=== PATIENT | female | born 1950 | race African-American/Black ===

== ENCOUNTER 2017-03-25 09:13 | Emergency (ER) | payer MEDICAID, OTHER ==
[~2017-03-25] VITALS: Ht 160 cm; Wt 108.9 kg
[~2017-03-25 09:13] MED LIST: BENAZEPRIL HCL40 MG ORAL; METOPROLOL TART50 MG ORAL; NORCO 10/3251 EA ORAL; NORCO 5-325 TA1 EACH ORAL; PEPCID20 M1 *; ROBAXIN-750750 MG PO; SIMVASTATIN10 MG ORAL
[2017-03-25 09:25] VITALS: BP 148/86
--- NOTE | 2017-03-25 09:44 | Emergency Room Report ---
History of Present Illness General Chief Complaint: Multiple Trauma/Fall Source: Patient Present Illness HPI 66-year-old female, history of hypertension, osteoarthritis, in a wheelchair mostly but walks in a home, presenting with left hip pain. Patient states that she was in the shower yesterday, slipped and fell, landed on her buttocks. Did not hit her head. There was no LOC. Allergies: Coded Allergies: CODEINE (Verified Allergy, Mild, Itching, 08/08/13) IBUPROFEN (Verified Allergy, Mild, 08/08/13) ULCERS BLEED Patient History Past Medical History: see triage record Past Surgical History: none Pertinent Family History: none Last Menstrual Period: na Reviewed Nursing Documentation: PMH: Agreed, PSxH: Agreed Nursing Documentation-PMH Past Medical History: No History, Except For Hx Hypertension: Yes - HIGH CHOLESTEROL Hx Pacemaker: No Hx Asthma: No Hx Diabetes: Yes Hx Cancer: No Hx Gastrointestinal Problems: Yes - GERD, ULCERS Hx Dialysis: No Hx Neurological Problems: No Hx Cerebrovascular Accident: No Hx Seizures: No Review of Systems All Other Systems: negative except mentioned in HPI Physical Exam Vital Signs Date Time Temp Pulse Resp B/P (MAP) Pulse Ox O2 Delivery O2 Flow Rate FiO2 03/25/17 09:23 98.8 77 18 148/86 98 Room Air Sp02 EP Interpretation: reviewed, normal General Appearance: alert, GCS 15, non-toxic, mild distress Head: normocephalic, atraumatic Eyes: bilateral eye normal inspection, bilateral eye PERRL, bilateral eye EOMI ENT: normal ENT inspection, normal pharynx, normal voice, moist mucus membranes Neck: normal inspection, full range of motion, supple Respiratory: normal inspection, lungs clear, normal breath sounds, no respiratory distress, no retraction, no wheezing, speaking full sentences, chest symmetrical Cardiovascular #1: normal inspection, regular rate, rhythm, normal capillary refill Cardiovascular #2: 2+ radial (R), 2+ radial (L) Gastrointestinal: normal inspection, non tender, soft, non-distended, no guarding Musculoskeletal: other - L hip tenderness, limited ROM L hip 2/2 to pain, no leg shortening or rotation, able to bend b/l knees Neurologic: normal inspection, alert, oriented x3, responsive, transformation consultant III-XII nml as tested, motor strength/tone normal, sensory intact, normal gait, speech normal Psychiatric: normal inspection, judgement/insight normal, memory normal Skin: normal inspection, normal color, no rash, warm/dry, well hydrated, normal turgor Medical Decision Making Diagnostic Impression: Primary Impression: fall, mechanical ER Course 66-year-old female, mechanical fall, left hip pain DDX: Fracture versus contusion Plan: Pain control, x-rays ER course: Patient has remained stable during ED stay. Feels better with medication X-rays do not reveal a fracture, however complete obliteration of the hip joint space, will perform CT pt has been pain free after initial meds given to her XR not sufficient to r/o fx, wanted to get CT however patient refusing and states that she has somewhere to go informed her of possible occult fracture and possible disability, however still refusing Patient is clinically sober, is free from from distracting injury, and has intact judgement and capacity to decide to leave against medical advice. Patient came in for left hip pain. I'm concerned for occult hip fracture. Patient verbalized understanding of my concern and my need to do CAT scan, but patient states "I feel better and I want to leave ". I explained to patient the risks of leaving AMA and patient informed that if they leave, they could get worse, ould become become critically ill, possibly become disabled or . Patient verbalized back to me understanding of these risks but still wants to leave. Disposition: Patient left AMA Prescriptions given are norco Strict return precautions discussed with patient such as fever, chills, worsening/severe pain, chest pain, SOB, nausea, vomiting, which may indicate severe illness. Patient verbalizes understanding and agrees with plan. Please note that this Emergency Department Report was dictated using [employer] scalder technology software, occasionally this can lead to erroneous entry secondary to interpretation by the dictation equipment Rhythm Strip EP Interpretation: Yes Rate: 81 Rhythm: NSR, no PVCs, no ectopy Xray: Left hip Complete Indication: Pain EP Interpretation: Yes Findings: There is complete obliteration of the hip joint space. There is considerable subchondral sclerosis of both the acetabulum and femoral head. There is subchondral cyst formation within the femoral head. There is degenerative remodeling of the acetabulum and the femoral head. No definite acute hip or pelvic fractures. No dislocations. There is a right hip prosthesis noted. There are degenerative changes of the lumbosacral junction. Impression: No definite acute bony trauma. Note, however, that in elderly osteoporotic patients, nondisplaced fractures can easily be occult. Consider cross-sectional imaging if there is high clinical suspicion This is a read by radiologist Electronically signed by Celso Botello MD Xray: Pelvis One view Indication: Pain EP Interpretation: Yes Findings: There is complete obliteration of the hip joint space. There is considerable subchondral sclerosis of both the acetabulum and femoral head. There is subchondral cyst formation within the femoral head. There is degenerative remodeling of the acetabulum and the femoral head. No definite acute hip or pelvic fractures. No dislocations. There is a right hip prosthesis noted. There are degenerative changes of the lumbosacral junction. Impression: No definite acute bony trauma. Note, however, that in elderly osteoporotic patients, nondisplaced fractures can easily be occult. Consider cross-sectional imaging if there is high clinical suspicion Electronically signed by Celso Botello MD Xray: Left femur 2 view Indication: Pain EP Interpretation: Yes Interpretation: Obliteration of the hip joint Impression: No acute fracture, however will perform CT Electronically signed by Celso Botello MD Last Vital Signs Date Time Temp Pulse Resp B/P (MAP) Pulse Ox O2 Delivery O2 Flow Rate FiO2 03/25/17 09:25 98.7 77 14 148/86 96 Room Air Disposition: AGAINST MEDICAL ADVICE Condition: Improved Scripts Hydrocodone Bit/Acetaminophen 5-325* (NORCO 5-325*) 1 Each Tablet 1 TAB ORAL Q6H Y for For Pain, #20 TAB 0 Refills Prov: Celso Botello M.D. 03/25/17 Celso Botello M.D. Mar 25, 2017 09:44
[2017-03-25] MEDS ORDERED: oxyCODONE HCL/Acetaminophen 5/325mg ORAL ONE (10:00)
[2017-03-25] MEDS ORDERED: Norco 5mg/325mg tab ORAL ONE (10:45)
--- NOTE | 2017-03-25 11:59 | Diagnostic Imaging Report ---
Indication: PAIN Technique: 2 views of the left hip, one view of the pelvis Comparison: None Findings: There is complete obliteration of the hip joint space. There is considerable subchondral sclerosis of both the acetabulum and femoral head. There is subchondral cyst formation within the femoral head. There is degenerative remodeling of the acetabulum and the femoral head. No definite acute hip or pelvic fractures. No dislocations. There is a right hip prosthesis noted. There are degenerative changes of the lumbosacral junction. Impression: No definite acute bony trauma. Note, however, that in elderly osteoporotic patients, nondisplaced fractures can easily be occult. Consider cross-sectional imaging if there is high clinical suspicion
[2017-03-25 12:30] VITALS: BP 126/71
[2017-03-25] MEDS ORDERED: NORCO 5-325 TA1 EACH ORAL (13:50)
[2017-03-25 13:52] VITALS: BP 126/71
--- NOTE | 2017-03-25 16:06 | Diagnostic Imaging Report ---
Indication: PAIN Technique: 2 views of the left femur Comparison: None Findings: There is severe degenerative change of the left hip joint, with complete obliteration of the joint space, subchondral sclerosis, and osteophyte formation as well as remodeling of the femoral head and acetabulum. No acute fractures. No dislocations. There is medial compartmental degenerative joint space narrowing involving the knee joint. No radiopaque foreign body is demonstrated Impression: No definite acute bony trauma Degenerative changes of the left hip and knee
== END 2017-03-25 13:52 | disposition left against medical advice (07) ==
LOC: EMR 09:52
DX: M16.12 Unilateral primary osteoarthritis, left hip (principal); Z88.6 Allergy status to analgesic agent; M17.12 Unilateral primary osteoarthritis, left knee; K21.9 Gastro-esophageal reflux disease without esophagitis; E11.9 Type 2 diabetes mellitus without complications
CPT/HCPCS: 72170; 73502; 99284

== ENCOUNTER 2017-06-15 11:02 | Inpatient (IN) | payer OTHER ==
[~2017-06-15] VITALS: Ht 152.4 cm; Wt 102.1 kg
[2017-06-15 11:23] VITALS: BP 142/81
[2017-06-15] MEDS: Nitroglycerin Subl 0.4mg tab SL PRN ×3 (11:43→11:56)
[2017-06-15] MEDS ORDERED: Albuterol ud Inhalation HHN ONE (11:45)
[2017-06-15] MEDS ORDERED: Ipratropium 0.02% Inh Soln 2.5ml UD HHN ONE (11:45)
--- NOTE | 2017-06-15 11:59 | Diagnostic Imaging Report ---
Indication: Chest pain Comparison: 05/05/2010 A single view chest radiograph was obtained. Findings: Cardiomediastinal appearance is within normal limits for age. Pulmonary vascularity is appropriate. The diaphragmatic contour is smooth and costophrenic angles are sharp. No pleural effusions are identified. The bones are unremarkable. Osteophytes noted throughout the thoracic spine endplates. Impression: No acute findings
[2017-06-15 12:03] LABS: BASOPHILS % (AUTO) 0.5 % (0.0-2.0); HEMATOCRIT 41.4 % (37.0-47.0); HEMOGLOBIN 13.8 G/DL (12.0-16.0); LYMPHOCYTES % (AUTO) 21.3 % (20.0-45.0); MEAN CORPUSCULAR VOLUME 91 FL (80-99); MONOCYTES % (AUTO) 3.8 % (1.0-10.0); NEUTROPHILS % (AUTO) 73.4 % (45.0-75.0); PLATELET COUNT 306 K/UL (150-450); RED BLOOD COUNT 4.56 M/UL (4.20-5.40); RED CELL DISTRIBUTION WIDTH 12.9 % (11.6-14.8); WHITE BLOOD COUNT 9.6 K/UL (4.8-10.8)
[2017-06-15 12:13] VITALS: BP 137/78
[2017-06-15 12:18] LABS: ANION GAP 9 mmol/L (5-15); BLOOD UREA NITROGEN 16 mg/dL (7-18); CALCIUM 9.1 MG/DL (8.5-10.1); CARBON DIOXIDE 27 MMOL/L (21-32); CHLORIDE 102 MMOL/L (98-107); CREATININE 0.5 MG/DL (0.55-1.30); POTASSIUM 4.1 MMOL/L (3.5-5.1); SODIUM 137 MMOL/L (136-145)
[2017-06-15 12:31] LABS: ALANINE AMINOTRANSFERASE 22 U/L (12-78); ALBUMIN 3.7 G/DL (3.4-5.0); ALBUMIN/GLOBULIN RATIO 1.1 (1.0-2.7); ALKALINE PHOSPHATASE 95 U/L (46-116); ASPARTATE AMINO TRANSFERASE 10 U/L (15-37); BILIRUBIN,TOTAL 0.3 MG/DL (0.2-1.0); CKMB 0.6 NG/ML (0.0-3.6); CREATINE KINASE 32 U/L (26-308)
[2017-06-15 13:13] VITALS: BP 106/56
[2017-06-15 15:18] VITALS: BP 139/80
--- NOTE | 2017-06-15 15:18 | Emergency Room Report ---
History of Present Illness General Chief Complaint: Chest Pain Source: Patient, Medical Record Present Illness HPI 66-year-old female presents to ED for evaluation. States she's been expressing chest pain which started approximately 2 hours prior to arrival. Midsternal, sharp, radiating down the left arm, 7/10. Also complaining of cough. Cough is dry. Notes history of bronchitis. Denies fevers chills. No shortness of breath. No other aggravating relieving factors. Denies any other associated symptoms Allergies: Coded Allergies: CODEINE (Verified Allergy, Mild, Itching, 08/08/13) IBUPROFEN (Verified Allergy, Mild, 08/08/13) ULCERS BLEED Patient History Past Medical History: DM, ulcer, GERD Past Surgical History: none Pertinent Family History: none Social History: Reports: smoking, alcohol use, drug use Now: No Immunizations: UTD Reviewed Nursing Documentation: PMH: Agreed, PSxH: Agreed Nursing Documentation-PMH Past Medical History: No History, Except For Hx Hypertension: Yes - HIGH CHOLESTEROL Hx Pacemaker: No Hx Asthma: No Hx Diabetes: Yes Hx Cancer: No Hx Gastrointestinal Problems: Yes - GERD, ULCERS Hx Dialysis: No Hx Neurological Problems: No Hx Cerebrovascular Accident: No Hx Seizures: No Review of Systems All Other Systems: negative except mentioned in HPI Physical Exam Vital Signs Date Time Temp Pulse Resp B/P (MAP) Pulse Ox O2 Delivery O2 Flow Rate FiO2 06/15/17 11:13 97.4 93 14 160/102 98 Room Air 97.3 Sp02 EP Interpretation: reviewed, normal General Appearance: no apparent distress, alert, GCS 15, non-toxic Head: normocephalic, atraumatic Eyes: bilateral eye normal inspection, bilateral eye PERRL ENT: hearing grossly normal, normal pharynx, no angioedema, normal voice Neck: full range of motion, supple/symm/no masses Respiratory: chest non-tender, lungs clear, normal breath sounds, speaking full sentences Cardiovascular #1: regular rate, rhythm, no edema Cardiovascular #2: 2+ carotid (R), 2+ carotid (L), 2+ radial (R), 2+ radial (L) , 2+ dorsalis pedis (R), 2+ dorsalis pedis (L) Gastrointestinal: normal bowel sounds, non tender, soft, non-distended, no guarding, no rebound Rectal: deferred Genitourinary: normal inspection, no CVA tenderness Musculoskeletal: back normal, gait/station normal, normal range of motion, non- tender Neurologic: alert, oriented x3, responsive, motor strength/tone normal, sensory intact, speech normal Psychiatric: judgement/insight normal, memory normal, mood/affect normal, no suicidal/homicidal ideation Reflexes: 3+ bicep (R), 3+ bicep (L), 3+ tricep (R), 3+ tricep (L), 3+ knee (R) , 3+ knee (L) Skin: normal color, no rash, warm/dry, well hydrated Lymphatic: no adenopathy Medical Decision Making Diagnostic Impression: Primary Impression: ACS (acute coronary syndrome) ER Course Hospital Course 66-year-old female presents ED complaining of chest pain, cough Differential diagnoses include: WI/unstable angina, contusion, muscle strain, PTX, rib fracture Clinical course Patient placed on stretcher. on artificial limb maker. After initial history and physical I ordered labs, EKG, chest x-ray, nebs, NTG labs reviewed- no leukocytosis. hb/hct stable. electrolytes ok. trop negative EKG - NSR, no acute ischemic changes interpreted by me Chest x-ray- no acute process On reassessment chest pain is improved. Breathing has improved. Given age and presentation with risk factors patient should be admitted. Aspirin given. Case discussed with Dr. Weldon and he agreed to accept the patient to his service for further care and support I. I feel this is a highly complex case requiring extensive working including EKG/Rhythm strip, Xray/CT/US, Blood/urine lab work, repeat exams while in ED, and administration of strong opiates/narcotics for pain control, admission to hospital or close patient follow up. Diagnosis - ACS admitted to telemetry in serious condition Labs Test 06/15/17 11:53 White Blood Count 9.6 K/UL (4.8-10.8) Red Blood Count 4.56 M/UL (4.20-5.40) Hemoglobin 13.8 G/DL (12.0-16.0) Hematocrit 41.4 % (37.0-47.0) Mean Corpuscular Volume 91 FL (80-99) Mean Corpuscular Hemoglobin 30.2 PG (27.0-31.0) Mean Corpuscular Hemoglobin Concent 33.2 G/DL (32.0-36.0) Red Cell Distribution Width 12.9 % (11.6-14.8) Platelet Count 306 K/UL (150-450) Mean Platelet Volume 6.5 FL (6.5-10.1) Neutrophils (%) (Auto) 73.4 % (45.0-75.0) Lymphocytes (%) (Auto) 21.3 % (20.0-45.0) Monocytes (%) (Auto) 3.8 % (1.0-10.0) Eosinophils (%) (Auto) 1.0 % (0.0-3.0) Basophils (%) (Auto) 0.5 % (0.0-2.0) Sodium Level 137 MMOL/L (136-145) Potassium Level 4.1 MMOL/L (3.5-5.1) Chloride Level 102 MMOL/L (98-107) Carbon Dioxide Level 27 MMOL/L (21-32) Anion Gap 9 mmol/L (5-15) Blood Urea Nitrogen 16 mg/dL (7-18) Creatinine 0.5 MG/DL (0.55-1.30) Estimat Glomerular Filtration Rate > 60 mL/min (>60) Glucose Level 110 MG/DL (74-106) Calcium Level 9.1 MG/DL (8.5-10.1) Total Bilirubin 0.3 MG/DL (0.2-1.0) Aspartate Amino Transf (AST/SGOT) 10 U/L (15-37) Alanine Aminotransferase (ALT/SGPT) 22 U/L (12-78) Alkaline Phosphatase 95 U/L (46-116) Total Creatine Kinase 32 U/L (26-308) Creatine Kinase MB 0.6 NG/ML (0.0-3.6) Creatine Kinase MB Relative Index 1.8 Troponin I 0.000 ng/mL (0.000-0.056) Pro-B-Type Natriuretic Peptide 65 pg/mL (0-125) Total Protein 7.1 G/DL (6.4-8.2) Albumin 3.7 G/DL (3.4-5.0) Globulin 3.4 g/dL Albumin/Globulin Ratio 1.1 (1.0-2.7) EKG Diagnostic Results Rate: normal Rhythm: NSR ST Segments: no acute changes ASA given to the pt in ED: Yes Rhythm Strip Diag. Results EP Interpretation: yes Rhythm: NSR, no PVC's, no ectopy Chest X-Ray Diagnostic Results Chest X-Ray Diagnostic Results : Chest X-Ray Ordered: Yes # of Views/Limited/Complete: 1 View Indication: Chest Pain EP Interpretation: Yes Interpretation: no consolidation, no effusion, no pneumothorax, no acute cardiopulmonary disease Impression: No acute disease Electronically Signed by: Electronically signed by Marcial Jerez MD Last Vital Signs Date Time Temp Pulse Resp B/P (MAP) Pulse Ox O2 Delivery O2 Flow Rate FiO2 06/15/17 13:13 98.0 73 15 106/56 99 Room Air 98.0 Status: improved Disposition: ADMITTED INPATIENT Condition: Serious Referrals: NON PHYSICIAN (PCP) MARCIAL JEREZ M.D. Jun 15, 2017 15:18
[2017-06-15] MEDS ORDERED: METFORMIN HCL500 M1 ORAL (16:34)
[2017-06-15] MEDS ORDERED: ALBUTEROL SULF8.5 GM INH (16:34)
[2017-06-15] MEDS ORDERED: SPIRIVA18 MCG INH (16:35)
[2017-06-15] MEDS ORDERED: Ipratropium 0.02% Inh Soln 2.5ml UD HHN PRN (17:30)
[2017-06-15] MEDS ORDERED: Milk of Magnesia 30ml Ud ORAL PRN (17:30)
[2017-06-15] MEDS: metFORMIN 500mg tab ORAL SCH (18:41)
[2017-06-15] MEDS: Morphine Sulfate 4mg/ml Inj IVP PRN (18:42)
[2017-06-15 20:00] VITALS: BP 111/56
[2017-06-15] MEDS: NovoLOG Insulin Flexpen SUBQ SCH (21:00)
[2017-06-16] VITALS: BP 134/87
[2017-06-16] MEDS: Morphine Sulfate 4mg/ml Inj IVP PRN ×4 (00:36→21:25)
[2017-06-16 04:00] VITALS: BP 114/58
[2017-06-16] MEDS: Nitroglycerin Subl 0.4mg tab SL PRN ×2 (05:15→05:25)
[2017-06-16] MEDS: NovoLOG Insulin Flexpen SUBQ SCH ×4 (06:30→20:36)
[2017-06-16 06:45] LABS: CHOLESTEROL 200 MG/DL (< 200); HDL CHOLESTEROL 45 MG/DL (40-60); TRIGLYCERIDES 152 MG/DL (30-150)
[2017-06-16 08:00] VITALS: BP 125/56
[2017-06-16] MEDS: metFORMIN 500mg tab ORAL SCH ×2 (08:37→17:36)
[2017-06-16] MEDS: Aspirin Baby 81mg ORAL SCH (08:37)
[2017-06-16] MEDS: Metoprolol Tartrate 50mg tab ORAL SCH (08:38)
--- NOTE | 2017-06-16 09:08 | History & Physical ---
History and Physical History & Physicial HP dictated #[id number] PAMELA CHARLTON Jun 16, 2017 09:08
--- NOTE | 2017-06-16 11:16 | History and Physical Report ---
DATE OF ADMISSION: 06/15/2017 CHIEF COMPLAINT: Chest pain. HISTORY OF PRESENT ILLNESS: This is a 66-year-old female, who came to the emergency room with chest pain which started about 2 hours prior to arrival. The patient stated that the pain lasted about 5 minutes. It was sharp and radiating to the left arm. The patient apparently has had this chest pain for the past four years on and off, and she was supposed to have outpatient procedure done for evaluation, however, she missed that appointment. In terms of risk factors, the patient does have history of both diabetes and hypertension, also father had heart disease in his 50s, and he is also a smoker. PAST MEDICAL HISTORY: Includes also history of gastroesophageal reflux disease and history of peptic ulcer disease besides diabetes, hypertension, and hyperlipidemia. The patient is not sure if she had a heart attack. MEDICATIONS: Reviewed in the EMR. SOCIAL HISTORY: The patient smokes about 4 cigarettes a day although she used to smoke more heavily, but reduced the number of cigarettes about a year ago. She has 20-year history of smoking. ALLERGIES: Codeine causes itching. The patient is intolerant to ibuprofen causing gastrointestinal bleed. The patient lives with sister. REVIEW OF SYSTEMS: Noncontributory. PHYSICAL EXAMINATION: GENERAL: The patient is a moderately obese female in no acute distress. VITAL SIGNS: Blood pressure is 101/72, pulse 71, temperature 99.1, respiratory rate 17. HEENT: [place] conjunctivae. Anicteric sclerae. NECK: Supple. LUNGS: Clear to auscultation. HEART: S1, S2 without murmurs or rubs. ABDOMEN: Soft, nontender. EXTREMITIES: No cyanosis or edema. LABORATORY FINDINGS: CBC shows WBC of 9.9, hematocrit 41.9, hemoglobin 14.1, and platelet is 181,000. The chemistry panel shows serum sodium 138, potassium 3.4, chloride 101, BUN 8, creatinine 0.7. UA is unremarkable. EKG showing sinus rhythm, rate of 95, nonspecific ST-T changes. ASSESSMENT: This is a 66-year-old female, who is admitted with what appears to be atypical chest pain and also the patient has had for long time, however, she has multiple risk factors including diabetes, hypertension, smoking, hyperlipidemia. Also, she apparently responded to nitroglycerin. The chest pain improved in the emergency room and also this morning, she had another episode of chest pain which she responded again to nitroglycerin. PLAN: The patient's troponins will be checked. The patient will be seen by master lay out specialist, Dr. Aguilar. Further cardiac studies will be ordered per recommendation of Dr. Aguilar. If necessary, I will order an echocardiogram to assess LV function and also look for any wall motion abnormalities. Mina Weldon M.D. DR: Leonard JOB#: [id number] CC: JB
[2017-06-16 12:00] VITALS: BP 129/78
--- NOTE | 2017-06-16 12:43 | Cardiology Progress Note ---
Assessment/Plan Assessment/Plan 4 years of cp no change in duration frequency nor exacerbating or relieving factor reportedly recently ahd stress test at [facility] and was supposed to see [facility] figurine maker for a test but she missed that appoint since no change in ekg since 2015 form [facility] an re neg adn pain in reproducible on palpation best if she fu with the figurine maker she was supposed to see as oupt [id number] Objective Last 24 Hour Vital Signs Date Time Temp Pulse Resp B/P (MAP) Pulse Ox O2 Delivery O2 Flow Rate FiO2 06/16/17 09:09 97.3 06/16/17 08:39 97.3 06/16/17 08:38 66 114/58 06/16/17 08:38 114/58 06/16/17 07:51 65 06/16/17 05:25 123/63 06/16/17 05:15 136/82 06/16/17 04:00 97.3 66 20 114/58 95 Room Air 06/16/17 04:00 63 06/16/17 00:00 73 06/16/17 00:00 97.7 82 20 134/87 94 Room Air 06/15/17 20:00 72 06/15/17 20:00 97.5 70 20 111/56 95 Room Air 06/15/17 19:09 98.1 06/15/17 18:42 98.1 06/15/17 16:02 98.1 73 20 139/80 99 Room Air 98.1 06/15/17 16:00 71 06/15/17 15:18 98.1 73 20 139/80 99 Room Air 98.1 06/15/17 13:13 98.0 73 15 106/56 99 Room Air 98.0 Intake and Output 06/15/17 06/16/17 19:00 07:00 Intake Total 290 ml Balance 290 ml Intake Oral 290 ml # Voids 1 Laboratory Tests Test 06/16/17 06:10 Troponin I 0.000 ng/mL (0.000-0.056) Triglycerides Level 152 MG/DL (30-150) H Cholesterol Level 200 MG/DL (< 200) LDL Cholesterol 134 mg/dL (<100) H HDL Cholesterol 45 MG/DL (40-60) Cholesterol/HDL Ratio 4.4 (3.3-4.4) REMIGIO JACKSON 18, 2018 12:43
[2017-06-16 16:00] VITALS: BP 141/87
--- NOTE | 2017-06-16 16:31 | Consultation ---
DATE OF CONSULTATION: 06/16/2017 CARDIOLOGY CONSULTATION CONSULTING PHYSICIAN: Damien Aguilar M.D. REFERRING PHYSICIAN: Mina Weldon M.D. REASON FOR REFERRAL: Chest pain. HISTORY OF PRESENT ILLNESS: This is a 66-year-old female, who presented to the hospital emergency room here at [facility]. She has had chest pain for approximately four years, left-sided chest pain and pressure radiating down the left arm. She has had evaluation on several occasions, most recently was approximately one month ago. She had a stress test, was told that the stress test was okay, but she was supposed to have some kind of a test done by music historian that she missed the appointment of. She denies any change in duration, frequency, location, or exacerbating or relieving factors of this pain that usually lasts for a few seconds to 5 minutes. This is the same pattern she has had for the past four years in the same areas that she has had the pain for the past four years. The only relieving or exacerbating factor that she does identify is that when she moves her arm or when she coughs, the pain will get worse. She feels that sometimes nitroglycerin gives her some relief. PAST MEDICAL HISTORY: Positive for diabetes, high blood pressure, and high cholesterol. No heart attack. No cancer. No stroke. No hepatitis or tuberculosis. No asthma. She does have history of emphysema. No ulcers. No liver disease, kidney disease, or thyroid disease. She has history of arthritis. There is no HIV, AIDS, or blood clots anywhere. ALLERGIES: Ibuprofen that caused her to have ulcers and codeine. SOCIAL HISTORY: Four cigarettes per day. Denies any alcohol or drugs. REVIEW OF SYSTEMS: GASTROINTESTINAL: Negative. GENITOURINARY: Negative. PULMONARY: Occasional coughing. CONSTITUTIONAL: Negative. NEUROLOGIC: Negative. PHYSICAL EXAMINATION: GENERAL: Shows to be morbidly obese middle-aged female, in no respiratory distress, sitting up in bed, eating her lunch. NECK: Supple. No jugular venous distention. CHEST: Chest wall is tender reproducing the patient's exact pain that she states that she has been having to the exact degree accordingly. LUNGS: Appeared to be clear to auscultation and percussion. CARDIAC: Regular rate and rhythm. No heaves, thrills, gallops, or rubs are noted. ABDOMEN: Soft and nontender. Positive bowel sounds. EXTREMITIES: There is no clubbing or cyanosis nor is there any edema. NEUROLOGICAL: She is awake, alert, and responsive. LABORATORY AND DIAGNOSTIC DATA: White count of 9.6, hemoglobin 13.8, platelet count of 306,000. Sodium is 137, potassium 4.1, chloride 102, bicarbonate 27, BUN 16, creatinine 0.5, and glucose of 110. Troponins are negative. ProBNP is normal at 65. Total cholesterol of 200, LDL of 134, HDL of 45, and triglycerides of 152. A chest x-ray performed in the emergency room was interpreted as no acute findings. Her EKG performed available in the chart basically, she does have some biphasic T-waves in III, aVF as well as V4, V5, and V6. The electrocardiogram is unchanged since the EKG was available at [facility] from 10/31/2014, although some abnormalities were present at that time. The patient has had the troponins done on several occasions at [facility], both of which were negative as well, as they are here. ASSESSMENT AND PLAN: 1. Atypical chest pain with reportedly negative recent stress test. 2. Chest wall tenderness seems to reproduce the patient's pain from above. 3. Diabetes mellitus. 4. Hypertension. 5. Hyperlipidemia. 6. Obesity. Dr. Weldon, this patient was seen in cardiac consultation. The patient has no new electrocardiographic abnormalities reported. She had a stress test reportedly according to herself, which was negative. She has a music historian who she needed to have some further testing done. I would recommend that since there was no electrocardiographic abnormality or cardiac enzyme abnormality that she follow up with music historian as an outpatient for further management in addressing of her pain, although it is possible that this pain that she has been complaining for approximately four years that has not changed in character, duration, or exacerbating or relieving factor may be chest wall tenderness as well. Damien Aguilar M.D. DR: SHUBHAM JOB#: [id number] CC:
[2017-06-16 20:00] VITALS: BP 130/64
[2017-06-16] MEDS ORDERED: Atorvastatin 20mg tab ORAL SCH (21:00)
[2017-06-17] VITALS: BP 136/108
[2017-06-17] MEDS: Morphine Sulfate 4mg/ml Inj IVP PRN ×4 (00:32→10:33)
[2017-06-17 04:00] VITALS: BP 122/71
[2017-06-17] MEDS: NovoLOG Insulin Flexpen SUBQ SCH ×2 (06:30→11:30)
[2017-06-17 08:00] VITALS: BP 120/74
[2017-06-17 10:23] VITALS: BP 120/74
[2017-06-17] MEDS: Aspirin Baby 81mg ORAL SCH (10:23)
[2017-06-17] MEDS: Metoprolol Tartrate 50mg tab ORAL SCH (10:23)
[2017-06-17] MEDS: metFORMIN 500mg tab ORAL SCH (10:23)
--- NOTE | 2017-06-18 15:28 | Cardiology Report ---
APPROVED REPORT EKG Measurement Heart [id number] Normal sinus rhythm Left axis deviation Nonspecific ST and T wave abnormality Prolonged QT Abnormal ECG
--- NOTE | 2017-06-20 07:59 | Discharge Summary ---
Discharge Summary Hospital Course Date of Admission Jun 15, 2017 at 14:49 Date of Discharge Jun 17, 2017 at 12:50 Admitting Diagnosis ACS HPI Jayda Ley is a 66 year old female who was admitted on Jun 15, 2017 at 14:49 for Acute Coronary Syndrome Hospital Course dc summary #[id number] Discharge Medications Continued Medications: Benazepril Hcl* (Benazepril Hcl*) 40 Mg Tablet 40 MG ORAL DAILY, TAB Hydrocodone/Acetaminophen (Hydrocodon-Acetaminophn 10-325) 1 Ea Tab 1 TAB ORAL Q6H PRN for For Pain, #20 TAB Metformin Hcl* (Metformin Hcl*) 500 Mg Tablet 500 MG ORAL TWICE A DAY, TAB Metoprolol Tartrate* (Metoprolol Tartrate*) 50 Mg Tablet 50 MG ORAL DAILY, TAB 0 Refills Simvastatin (Zocor) 10 Mg Tablet 10 MG ORAL BEDTIME, TAB Discontinued Medications: Albuterol Sulfate* (Albuterol Sulfate Mdi*) 8.5 Gm Hfa.aer.ad 2 PUFF INH Q6H, #1 INH 0 Refills Hydrocodone Bit/Acetaminophen 5-325* (Dufur 5-325*) 1 Each Tablet 1 TAB ORAL Q6H PRN for For Pain, #20 TAB 0 Refills Tiotropium [place]* (Spiriva*) 18 Mcg Cap.w.dev Unknown Dose INH DAILY, EA Discharge Condition Upon Discharge: stable Discharge Disposition Patient was discharged to Home (01) Discharge Diagnoses: Discharge Instructions Discharge Instructions Special Instructions I have been assigned to complete a D/C Summary on this account. I was not involved in the patient management Mere Mancilla NP ([place]) Jun 20, 2017 07:59
--- NOTE | 2017-06-20 23:16 | Discharge Summary 2 SIG ---
DATE OF ADMISSION: 06/15/2017 DATE OF DISCHARGE: 06/17/2017 REASON FOR ADMISSION: 66-year-old female with history of hypertension, diabetes, high cholesterol, smoker, and osteoarthritis, presented to emergency room with a complaint of chest pain. Upon evaluation, blood pressure was elevated -160/102. Pulse oximetry was stable on the room air. Troponin was negative. EKG revealed normal sinus rhythm. No acute ischemic changes. Pro BNP -65. Chest x-ray revealed no acute cardiopulmonary pathology. The patient was admitted with chest pain, rule out acute coronary syndrome. HOSPITAL COURSE: The patient was admitted to telemetry floor. Cardiology consult was requested. Serial troponin were negative. EKG revealed no acute ischemic changes. According to log truck driver, who had seen the patient, there was no changes on EKG since 2014. According to the patient, she had a recent stress test at [facility] and it was negative. She was supposed to see log truck driver and missed her appointment. Upon evaluating the patient, log truck driver concluded that the chest pain was atypical, also noted chest wall tenderness. She also had a chronic pain for four years that had not changed in character, duration, exacerbating or relieving factors and may be also chest wall tenderness as well, because it was reproducible on palpation. Cytology Teacher suggested for the patient to follow up with the log truck driver, as she was supposed to see , as outpatient. The patient was stable for discharge. Blood pressure was managed with beta-rosalino and VINNY inhibitor. Blood sugar was managed with metformin. Lipid panel revealed elevated LDL. Statin dose continued. The patient was educated on low-fat and low-cholesterol cardiac diabetic diet. Stressed compliance with the medication regimen. Patient was counseled on smoking cessation. The patient was stable for discharge. FINAL DIAGNOSES: 1. Atypical chest pain. 2. Chest wall tenderness. 3. Diabetes mellitus. 4. Hypertension. 5. Hyperlipidemia. DISCHARGE MEDICATIONS: See medication reconciliation list. DISCHARGE INSTRUCTIONS: The patient was discharged home. Follow up as outpatient with the log truck driver for further management. Mina Weldon M.D. I have been assigned to dictate discharge summary on this account and I was not involved in the patient's management. Mere Gilbertsaida N.PDerick DR: SCOTTY JOB#: [id number] CC: JB
== END 2017-06-17 12:50 | disposition home or self-care (01) | DRG 203 ==
LOC: EMR 11:35 → 2E 14:49 → EDBEDREQ 15:17
DX: R07.89 Other chest pain (principal); Z68.41 Body mass index [BMI] 40.0-44.9, adult; I10 Essential (primary) hypertension; G89.29 Other chronic pain; E11.9 Type 2 diabetes mellitus without complications; E78.5 Hyperlipidemia, unspecified; Z88.6 Allergy status to analgesic agent; K21.9 Gastro-esophageal reflux disease without esophagitis; F17.210 Nicotine dependence, cigarettes, uncomplicated; E66.01 Morbid (severe) obesity due to excess calories
CPT/HCPCS: 36415; 71045; 80053; 80061; 82550; 82553; 82962; 83880; 84484; 85025; 93005; 94640; 94664; 99285; J1815